=== PATIENT | male | born 1970 | race Caucasian/White ===

== ENCOUNTER 2023-04-06 15:52 | Emergency (ER) | payer MEDICAID, SELFPAY ==
[2023-04-06 15:53] VITALS: BP 110/68; PULSE 113; RESP 18; TEMP 36.1; O2SAT 98; BMI 29.1
--- NOTE | 2023-04-06 16:11 | EDS_ITS ---
HPI History of Present Illness Chief Complaint: Upper Extremity Injury Informant: patient Onset/Context/Timing Onset: Weeks (1) Context: Sudden Onset Timing: Continuous Quality of Pain: Aching Location: L thumb Current Severity: Severe Maximum Severity: Severe Worsened by: movement Relieved by: nothing Associated Symptoms Associated Symptoms: Negative for Parasthesia or Weakness Narrative Narrative: 1 week ago patient states he tripped in his bedroom and fell against the floor bending his thumb back he is not exactly sure which way, but his left thumb has been hurting ever since he thought it would get better on its own but it is not. [id number]. No other injuries. No prodromal symptoms, he tripped in the dark. PFSH PFSH Medical History no medical history no medical history Allergy/AdvReac Type Severity Reaction Status Date / Time No Known Allergies Allergy Verified 04/06/23 15:55 ROS ROS ED Constitutional Constitutional ED: Denies chills or fever(s) Musculoskeletal Musculoskeletal: Reports extremity pain; Denies neck pain Integumentary Denies Abrasions, rash or wounds Neurologic Neurologic: Denies paresthesias or weakness EXAM Physical Exam Const Vital Signs: 04/06/23 15:53 Temperature 97 F L Temperature Source Temporal Pulse Rate 113 H Respiratory Rate 18 Blood Pressure 110/68 Blood Pressure Mean 82 Pulse Ox 98 Oxygen Delivery Method Room Air Positive well nourished and well developed General Appearance ED: well developed and NAD Neck full ROM and supple Back/Spine normal ROM and normal to inspection Extremity Extremity Narrative: Tenderness at the dorsal aspect of the left thumb MCPJ. No deformity. Limited range of motion due to pain but he is able to move all joints. All tendon function is intact, with regards to the ligaments of the thumb MCPJ, there is pain with stressing both of them but it is more significant at the radial collateral ligament, there is no laxity however. Neuro oriented x3, no focal motor deficits and no sensory deficits noted Sensorium / Orientation: alert Psych mental status grossly normal and thought process normal Skin no wounds Rashes: no rashes MDM MDM MDM Narrative Medical decision making narrative: Exam suggests gamekeeper's thumb, but he is not examining like a ligament rupture with joint opening significantly. X-rays of the left thumb are obtained. 3 views of my interpretation show no chip fractures or dislocations or joint asymmetry. Placed in a thumb spica splint and referred to orthopedics advised use ice, anti-inflammatories as needed. Discharge Plan Triage Chief Complaint: Upper Extremity Injury ED Provider: Darrell Lancaster Dx/Rx/DC Orders Clinical Impression: Gamekeeper's thumb of left hand Instructions: Gamekeeper Thumb Surg Primary Care Provider: Corrina Lopez Referrals: Tyler Cline DO [Med Staff - Active Staff] - As soon as possible Corrina Lopez, MEDICAL APPOINTMENT SCHEDULER-C [Primary Care Provider] - Disposition Disposition: Home, Self Care
--- NOTE | 2023-04-06 16:25 | RAD_ITS ---
EXAM: XR LEFT FINGERS, 2 OR MORE VIEWS CLINICAL INDICATION: injury -- thumb TECHNIQUE: Frontal, lateral and oblique views of the fingers of the left hand, with attention to the left bone.. COMPARISON: No relevant prior studies available. FINDINGS: BONES/JOINTS: Unremarkable. No acute fracture. No subluxation. Normal alignment. Preservation of the joint space. No sclerotic or destructive changes observed. SOFT TISSUES: Unremarkable. No soft tissue swelling or gas. No radiopaque foreign body. RAD/Finger(s) Min 2 Views IMPRESSION: No acute fracture or dislocation. Electronically Signed: Alfa Black MD at 17:19 EDT ,
== END 2023-04-06 17:23 | disposition home or self-care (01) ==
PROVIDERS: Emergency Provider Emergency Medicine; PCP Nurse Practitioner Family; Visit Provider Emergency Medicine
DX: S63.642A Sprain of metacarpophalangeal joint of left thumb, initial encounter (principal); W01.0XXA Fall on same level from slipping, tripping and stumbling without subsequent striking against object, initial encounter
CPT/HCPCS: 29130; 73140; 99283